=== PATIENT | male | born 1975 | race Caucasian/White ===

== ENCOUNTER 2021-04-02 04:16 | Emergency (ER) | payer SELFPAY ==
[2021-04-02] MEDS ORDERED: IBUPROFEN800 MG PO (04:39)
== END 2021-04-02 04:50 | disposition home or self-care (01) ==
LOC: FER 04:16
DX: T21.24XA Burn of second degree of lower back, initial encounter (principal); T23.172A Burn of first degree of left wrist, initial encounter; T31.0 Burns involving less than 10% of body surface; F17.200 Nicotine dependence, unspecified, uncomplicated; X03.0XXA Exposure to flames in controlled fire, not in building or structure, initial encounter; Y92.009 Unspecified place in unspecified non-institutional (private) residence as the place of occurrence of the external cause
CPT/HCPCS: 99283